=== PATIENT | female | born 1965 | race American Indian/Alaskan Native ===

== ENCOUNTER 2016-07-14 15:41 | Outpatient (CLI) | payer OTHER ==
--- NOTE | 2016-07-14 16:14 | XRay Report ---
CHEST 2 VIEWS INDICATION: Cough. COMPARISON: None similar at this institution. FINDINGS: PA and lateral chest radiographs demonstrate normal cardiomediastinal silhouette. Clear lungs. Mild lower thoracic levoscoliosis and degenerative spurring. CONCLUSION: No acute disease in the chest. Thank you for the opportunity to participate in this patient's care.
--- NOTE | 2016-07-14 16:47 | Mammography Report ---
The patient had this exam on the date indicated above. It was indicated to us that previous films should be available that would be helpful in providing optimal evaluation with regards to the current study. A final report will be issued, pending receipt of the prior study. CAD was utilized.
--- NOTE | 2016-07-15 13:56 | Ultrasound Report ---
TRANSABDOMINAL AND TRANSVAGINAL PELVIC ULTRASOUND: 07/14/16 15:41:00 CLINICAL: Enlarged uterus. FINDINGS: Transabdominal and transvaginal pelvic ultrasound demonstrated a mildly enlarged fibroid uterus measuring 10.5 x 6.3 x 8.1 cm. An intramural fibroid in the anterior body measures 3.0 x 2.5 x 1.8 cm. A posterior posterior submucosal fibroid in the uterine body and measures 2.9 x 2.7 x 2.6 cm. The next largest is located intramural in the uterine fundus and measures 2.7 x 1.8 x 2.3 cm. The endometrium is normal and measures 5.0 mm AP thickness. Normal ovaries. The right ovary measures 2.3 x 1.0 x 1.6cm. The left ovary measures 2.5 x 1.4 x 2.0cm. No adnexal mass. No free fluid. Normal urinary bladder. IMPRESSION: Uterine leiomyomata. Normal endometrium and normal ovaries.
== END 2016-07-14 15:42 | disposition home or self-care (01) ==
LOC: SPVWC 15:41
PROVIDERS: ATTEND Family Medicine
DX: Z12.31 Encounter for screening mammogram for malignant neoplasm of breast (principal); D25.9 Leiomyoma of uterus, unspecified; M41.84 Other forms of scoliosis, thoracic region; N85.2 Hypertrophy of uterus; R05 Cough
CPT/HCPCS: 71020; 76830; 76856; G0202; 77067

== ENCOUNTER 2018-08-10 09:38 | Outpatient (CLI) | payer OTHER ==
--- NOTE | 2018-08-10 15:37 | Mammography Report ---
BILATERAL DIGITAL SCREENING MAMMOGRAM with CAD: 08/10/18 09:38:00 CLINICAL: Routine screening. COMPARISON:07/14/16 FINDINGS: The breasts are almost entirely fatty.A stable low density circumscribed right inner nodule. No new mass, architectural distortion or suspicious calcifications. IMPRESSION: No mammographic evidence of malignancy. BI-RADS CATEGORY: 2 -- Benign RECOMMENDATION: Routine mammographic screening in one year. COMMENT: Patient follow-up letters are generated by our [employer] application.
== END 2018-08-10 09:39 | disposition home or self-care (01) ==
LOC: SPVWC 09:38
PROVIDERS: ATTEND Family Medicine
DX: Z12.31 Encounter for screening mammogram for malignant neoplasm of breast (principal)
CPT/HCPCS: 77067